=== PATIENT | male | born 1995 | race Caucasian/White ===

== ENCOUNTER 2021-07-09 18:32 | Emergency (ER) | payer OTHER ==
[~2021-07-09] VITALS: Ht 180.3 cm; Wt 83.6 kg
[2021-07-09 18:43] VITALS: BP 141/85
[2021-07-09 19:32] LABS: COVID AG,FIA SOURCE NASAL SWAB
== END 2021-07-09 20:16 | disposition home or self-care (01) ==
LOC: EMS 18:34
DX: U07.1 COVID-19 (principal); Z98.890 Other specified postprocedural states
CPT/HCPCS: 99283

== ENCOUNTER 2021-07-29 14:38 | Emergency (ER) | payer OTHER ==
[~2021-07-29] VITALS: Ht 175.3 cm; Wt 82.0 kg
[2021-07-29 14:38] VITALS: BP 142/88
[2021-07-29] MEDS ORDERED: IBUPROFEN 600 MG TABLET PO ONE (17:00)
== END 2021-07-29 17:13 | disposition home or self-care (01) ==
LOC: EMS 14:39
DX: S29.012A Strain of muscle and tendon of back wall of thorax, initial encounter (principal); X50.0XXA Overexertion from strenuous movement or load, initial encounter; Y93.89 Activity, other specified; Y92.89 Other specified places as the place of occurrence of the external cause; Y99.0 Civilian activity done for income or pay
CPT/HCPCS: 99282; Z7502; Z7610

== ENCOUNTER 2021-11-22 04:51 | Emergency (ER) | payer OTHER ==
[~2021-11-22] VITALS: Ht 180.3 cm; Wt 84.1 kg
[2021-11-22] MEDS ORDERED: KETOROLAC TROMETHAMINE 30 MG/ML VIAL IM ONE (05:15)
[2021-11-22] MEDS ORDERED: AMOX TR/POT CLAV 875 MG/125 MG TABLET PO ONE (05:15)
[2021-11-22] MEDS ORDERED: ACET-3385 PO (05:18)
[2021-11-22] MEDS ORDERED: IBUP-2070 PO (05:18)
[2021-11-22] MEDS ORDERED: AMOX1TAB16 PO (05:18)
[2021-11-22 05:46] VITALS: BP 140/80
== END 2021-11-22 05:50 | disposition home or self-care (01) ==
LOC: EMS 04:52
DX: K02.9 Dental caries, unspecified (principal)
CPT/HCPCS: 99283; 96372; J1885

== ENCOUNTER 2022-05-12 20:43 | Emergency (ER) | payer OTHER ==
[~2022-05-12] VITALS: Ht 180.3 cm; Wt 83.2 kg
[~2022-05-12 20:43] MED LIST: ACET-3385 PO; AMOX1TAB16 PO; IBUP-1492 PO
[2022-05-12 20:51] VITALS: BP 121/78
[2022-05-12] MEDS ORDERED: IBUPROFEN 800 MG TABLET PO ONE (22:30)
== END 2022-05-12 23:01 | disposition home or self-care (01) ==
LOC: EMS 20:45
DX: H66.91 Otitis media, unspecified, right ear (principal)
CPT/HCPCS: 99282; Z7502; Z7610